=== PATIENT | female | born 2000 | race Hispanic/Latino ===

== ENCOUNTER 2024-09-21 06:10 | Inpatient (IN) | payer SELFPAY ==
[~2024-09-21] VITALS: Ht 170.2 cm; Wt 86.2 kg
--- NOTE | 2024-09-21 06:29 | ERN ---
General Chief Complaint: Abdominal Pain Stated Complaint: EPIGASTRIC PAIN Time Seen by MD: 06:26 Source: patient History of Present Illness Initial Comments Patient has subxiphoid abdominal pain. She is sitting on the bed rocking back and forth to try and decrease the pain. She states she has had this pain before and she usually just toughs it out but this time it is more intense. The pain does not radiate to the right or the left it stays midline subxiphoid or supraumbilical. She is otherwise healthy no meds no allergies. Timing/Duration: 1-3 hours Severity: moderate Associated Symptoms: denies symptoms Allergies: Coded Allergies: No Known Allergies (Unverified Allergy, Unknown, 09/21/24) Past Medical History Past Medical History: No Pertinent History Past Surgical History: Constitutional: (+) chills; (-) diaphoresis, (-) fever, (-) malaise, (-) weakness, (-) other documentation EENTM: (-) eye pain, (-) blurred vision, (-) tearing, (-) double vision, (-) ear pain, (-) ear discharge, (-) nose pain, (-) nose congestion, (-) throat pain, (-) Throat swelling, (-) mouth pain, (-) tooth pain, (-) mouth swelling, (-) other documentation Respiratory: (-) cough, (-) orthopnea, (-) short of breath, (-) stridor, (-) wheezing, (-) other documentation Cardiovascular: (-) chest pain, (-) edema, (-) palpitations, (-) syncope, (-) dyspnea on exertion, (-) other documentation Gastrointestinal/Abdominal: (+) nausea Genitourinary: (-) vaginal discharge, (-) vaginal bleeding, (-) dysuria, (-) frequency, (-) hematuria, (-) pain, (-) other documentation Musculoskeletal: (-) Neck pain, (-) back pain, (-) Flank Pain, (-) joint pain, (-) joint swelling, (-) muscle pain, (-) muscle stiffness, (-) gout, (-) other documentation Skin: (-) laceration, (-) contusion, (-) abrasion, (-) abscess, (-) rash, (-) change in color, (-) change in hair, (-) change in nails, (-) diaphoresis, (-) dryness, (-) other documentation Neuro: (-) altered mental status, (-) headache, (-) syncope, (-) paralysis, (-) numbness, (-) seizure, (-) pre-existing deficit, (-) tremors, (-) weakness, (-) dizziness, (-) slurred speech, (-) vertigo, (-) other documentation Physical Exam General Appearance: (+) moderate distress Orientation: (+) oriented x 3 Head/Face Trauma: No Eye: bilateral eye normal inspection, bilateral eye PERRL, bilateral eye EOMI Ear, Nose, Throat: (+) hearing grossly normal, (+) moist mucous membraine Neck: (+) normal inspection, (+) supple, (+) full range of motion Respiratory: (+) chest non-tender, (+) lungs clear, (+) well ventilated Heart: (+) regular, (+) tachycardia Vascular: (+) no edema Gastrointestinal: (+) soft, (+) tender, (+) bowel sound absent Gastrointestinal Comment The only tenderness is subxiphoid supraumbilical pain. He is almost pinpoint pain. Results Laboratory and Microbiology Lab and Micro Result Laboratory Tests Test 09/21/24 07:01 White Blood Count 11.8 K/uL (4.8-10.8) H Red Blood Count 4.68 MIL/uL (4.00-5.50) Hemoglobin 14.1 g/dL (12.0-16.0) Hematocrit 42.7 % (36-48) Mean Corpuscular Volume 91.2 fL (79-99) Mean Corpuscular Hemoglobin 30.1 pg (27.0-33.0) Mean Corpuscular Hemoglobin Concent 33.0 g/dL (32.0-36.0) Red Cell Distribution Width 12.5 % (11.0-15.5) Platelet Count 225 K/uL (130-400) Mean Platelet Volume 10.0 fL (7.5-10.5) Immature Granulocyte % (Auto) 0.2 % (0-1) Neutrophils (%) (Auto) 77.6 % (40.0-77.0) H Lymphocytes (%) (Auto) 16.6 % (21.0-51.0) L Monocytes (%) (Auto) 5.1 % (3.0-13.0) Eosinophils (%) (Auto) 0.3 % (0.0-8.0) Basophils (%) (Auto) 0.2 % (0.0-5.0) Neutrophils # (Auto) 9.1 K/uL (1.8-7.7) H Lymphocytes # (Auto) 2.0 K/uL (1.0-4.8) Monocytes # (Auto) 0.6 K/uL (0.1-1.0) Eosinophils # (Auto) 0.04 K/uL (0.00-0.70) Basophils # (Auto) 0.02 K/uL (0.00-0.20) Absolute Immature Granulocyte (auto 0.02 K/uL (0-1) Nucleated Red Blood Cells 0.0 % (0.0-0.19) Urine Color YELLOW (YELLOW) Urine Appearance CLOUDY (CLEAR) H Urine pH 6.0 (5.0-8.0) Urine Specific Fernley 1.033 (1.001-1.031) Urine Protein 20 mg/dL (NEGATIVE) H Urine Glucose (UA) NEGATIVE mg/dL (NEGATIVE) Urine Ketones NEGATIVE mg/dL (NEGATIVE) Urine Occult Blood SMALL (NEGATIVE) H Urine Nitrate 2+ (NEGATIVE) H Urine Bilirubin NEGATIVE mg/dL (NEGATIVE) Urine Urobilinogen 0.2 mg/dL (0.2-1.0) Urine Leukocyte Esterase 500 Jesi/uL (NEGATIVE) H Urine RBC 2-5 /HPF (0-1) H Urine WBC 2-5 /HPF (0-1) H Urine Non-Squamous Epithelial Cells 6-10 /HPF (0-2) Urine Calcium Oxalate Crystals Few /LPF (None Seen) H Urine Bacteria Moderate /HPF (None Seen) H Urine HCG, Qualitative NEGATIVE (NEGATIVE) Sodium Level 142 mmol/L (136-145) Potassium Level 3.6 mmol/L (3.5-5.1) Chloride Level 106 mmol/L (101-111) Carbon Dioxide Level 27 mmol/L (21-32) Blood Urea Nitrogen 14 mg/dL (7-18) Creatinine 0.9 mg/dL (0.5-1.0) Glomerular Filtration Rate Calc 91 mL/min (>90) Random Glucose 111 mg/dL (70-105) H Total Calcium 9.2 mg/dL (8.5-10.1) Total Bilirubin 1.1 mg/dL (0.2-1.0) H Direct Bilirubin 0.4 mg/dL (0.0-0.3) H Aspartate Amino Transf (AST/SGOT) 139 U/L (10-37) H Alanine Aminotransferase (ALT/SGPT) 99 U/L (12-78) H Alkaline Phosphatase 96 U/L (50-136) Total Protein 7.3 g/dL (6.0-8.3) Albumin 4.0 g/dL (3.5-5.0) MDM Supraumbilical abdominal pain. Cause unknown. Patient has had it in the past and it has resolved. ED Course Orders Procedure Category Date Status Time Cbc With Differential LAB 09/21/24 Complete 06:30 ,Urine Test LAB 09/21/24 Complete 06:30 Urinalysis Profile LAB 09/21/24 Complete 06:30 Ondansetron 4mg Inj PHA 09/21/24 Complete (Zofran 4mg Inj) 06:30 Lidocaine Hcl 2% PHA 09/21/24 Complete Viscous (Lidocaine Hcl 06:30 Mag/Alum/Simeth 30ml PHA 09/21/24 Complete (Maalox Plus 30ml) 06:30 Dicyclomine Hcl PHA 09/21/24 Complete (Bentyl 10mg/5ml 06:30 Basic Metabolic Panel LAB 09/21/24 Complete 06:30 Us Abdominal Ruq\Ltd US 09/21/24 Resulted 07:34 Hepatic Function Panel LAB 09/21/24 Complete 07:34 Morphine 4mg Syg PHA 09/21/24 Complete (Morphine 4mg Syg) 08:30 Culture Urine ROGER 09/21/24 In Process 09:17 Hydromorphone 1 Mg PHA 09/21/24 Complete Inj (Dilaudid 1mg Inj 11:00 Current Medications Medications (Trade) Dose Ordered Sig/Nat Route PRN Reason Start Time Stop Time Status Last Admin Dose Admin Al Hydroxide/Mg Hydroxide (MAALox PLUS 30ML) 30 ml ONCE ONCE PO 09/21/24 06:30 09/21/24 06:33 DC 09/21/24 06:57 Dicyclomine HCl (Bentyl 10mg/5ml Syrup) 10 mg ONCE ONCE PO 09/21/24 06:30 09/21/24 06:33 DC 09/21/24 06:57 Hydromorphone HCl (DiLAUDid 1MG INJ) 0.5 mg ONCE ONCE IVP 09/21/24 11:00 09/21/24 11:01 DC 09/21/24 11:18 Lidocaine HCl (Lidocaine HCl 2% Viscous) 10 ml ONCE ONCE PO 09/21/24 06:30 09/21/24 06:33 DC 09/21/24 06:58 Morphine Sulfate (morPHINE 4MG SYG) 4 mg ONCE ONCE IVP 09/21/24 08:30 09/21/24 08:31 DC 09/21/24 08:27 Ondansetron HCl (zoFRAN 4MG INJ) 4 mg ONCE ONCE IVP 09/21/24 06:30 09/21/24 06:33 DC 09/21/24 06:58 Vital Signs Date Time Temp Pulse Resp B/P (MAP) Pulse Ox O2 Delivery O2 Flow Rate FiO2 09/21/24 11:26 97.9 72 16 134/77 98 Room Air* 0 09/21/24 10:00 97.9 77 24 131/76 97 Room Air* 0 09/21/24 09:00 97.9 78 20 121/79 98 Room Air* 0 09/21/24 07:52 97.5 96 20 121/81 100 Room Air* 0 09/21/24 06:42 96.8 95 20 128/77 99 Room Air* 0 09/21/24 06:12 96.8 95 20 128/77 99 Room Air DX & DISP Disposition: Inpatient Departure Impression: Primary Impression: Biliary colic Additional Impression: Intractable abdominal pain Condition: Stable Referrals: LILLIAM OLIVAS MD (PCP) FLEX HENRY MD Sep 21, 2024 06:29 AMIRA BACON MD Sep 21, 2024 12:40
[2024-09-21] MEDS: DICYCLOMINE HCL 10 MG/5 ML ML PO ONE (06:57)
[2024-09-21] MEDS: MAG/ALUM/SIMETH 30 ML UDCUP PO ONE (06:57)
[2024-09-21] MEDS: ondanSETRON 4MG INJ IVP ONE (06:58)
[2024-09-21] MEDS: LIDOCAINE HCL 2% VISCOUS 15 ML UDCUP PO ONE (06:58)
[2024-09-21 07:24] LABS: BASOPHILS # (AUTO) 0.02 K/uL (0.00-0.20); BASOPHILS % (AUTO) 0.2 % (0.0-5.0); EOSINOPHILS # (AUTO) 0.04 K/uL (0.00-0.70); EOSINOPHILS % (AUTO) 0.3 % (0.0-8.0); HEMATOCRIT 42.7 % (36-48); IMMATURE GRANULOCYTE ABSOLUTE 0.02 K/uL (0-1); LYMPHOCYTES % (AUTO) 16.6 % (21.0-51.0); MEAN CORPUSCULAR HEMOGLOBIN 30.1 pg (27.0-33.0); MEAN CORPUSCULAR VOLUME 91.2 fL (79-99); MONOCYTES # (AUTO) 0.6 K/uL (0.1-1.0); MONOCYTES % (AUTO) 5.1 % (3.0-13.0); NEUTROPHILS # (AUTO) 9.1 K/uL (1.8-7.7); NEUTROPHILS % (AUTO) 77.6 % (40.0-77.0); PLATELET COUNT (AUTO) 225 K/uL (130-400); RED BLOOD CELL COUNT(AUTO) 4.68 MIL/uL (4.00-5.50); RED CELL DISTRIBUTION WIDTH 12.5 % (11.0-15.5); WHITE BLOOD COUNT (AUTO) 11.8 K/uL (4.8-10.8)
[2024-09-21 07:36] LABS: CREATININE 0.9 mg/dL (0.5-1.0); POTASSIUM 3.6 mmol/L (3.5-5.1)
[2024-09-21 07:40] LABS: APPEARANCE,URINE CLOUDY (CLEAR); BILIRUBIN,URINE NEGATIVE (NEGATIVE); COLOR,URINE YELLOW (YELLOW); GLUCOSE, URINE (UA) NEGATIVE (NEGATIVE); KETONES,URINE NEGATIVE (NEGATIVE); LEUKOCYTE ESTERASE ,URINE 500 Leu/uL (NEGATIVE); NITRATE,URINE 2+ (NEGATIVE); OCCULT BLOOD,URINE SMALL (NEGATIVE); PROTEIN,URINE 20 mg/dL (NEGATIVE); UROBILINOGEN,URINE 0.2 mg/dL (0.2-1.0)
--- NOTE | 2024-09-21 07:59 | HMCIMG ---
US ABDOMINAL RUQ\E\LTD HISTORY: Pain COMPARISON: None TECHNIQUE: Right upper quadrant abdominal ultrasound study was performed. FINDINGS: Liver measures 17 cm. The visualized portion of the pancreas is within normal limits. Liver is echogenic consistent with liver parenchymal disease. Gallstones are seen in the distended gallbladder. Portal vein is patent. Common duct measures 4 mm. No evidence of gallbladder wall thickening is seen. Right kidney measures 10.6 x 5 x 4.1 cm. No hydronephrosis is seen of the right kidney. IMPRESSION: 1. Gallstones in the distended gallbladder. No ductal dilatation is seen. 2. No hydronephrosis is seen.
[2024-09-21] MEDS: morPHINE 4 MG SYG IVP ONE (08:27)
[2024-09-21 09:17] LABS: ADD UA MICROSCOPIC YES; HCG,QUALITATIVE URINE NEGATIVE (NEGATIVE)
[2024-09-21 09:50] LABS: BACTERIA,URINE Moderate /HPF (None Seen); CALCIUM OXALATE CRYSTALS,UR Few /LPF (None Seen)
[2024-09-21 09:57] LABS: BILIRUBIN,DIRECT 0.4 mg/dL (0.0-0.3); BILIRUBIN,TOTAL 1.1 mg/dL (0.2-1.0); TOTAL PROTEIN, SERUM 7.3 g/dL (6.0-8.3)
[2024-09-21] MEDS: hydroMORPHone 1 MG INJ IVP ONE (11:18)
[2024-09-21] MEDS ORDERED: acetaMINOPHEN 650 MG/20.3 ML UDCUP PEG PRN (13:00)
[2024-09-21] MEDS ORDERED: morPHINE 2 MG SYG IVP PRN (13:00)
[2024-09-21] MEDS: DEXTROSE 5 % AND 0.9 % NACL 1,000 ML IV SCH (13:00)
--- NOTE | 2024-09-21 13:02 | CONS ---
GENERAL SURGERY CONSULTATION NOTE Date/Time Patient Seen: [ September 21, 2024] Requesting Physician: [Dr. Kevin Vogel ] Reason for Consultation: [ Cholecystitis with a gallstones] History of Present Illness: [Patient with undulating pain since her 1st a number of years ago. Recently has recent as for him this morning patient is starting having more constant pain. Pain localized in the epigastrium and right upper quadrant. Associated with the pain with some nausea. Patient denies any emesis. Pain got significant outpatient came in the emergency room. An ultrasound was done that shows a distended gallbladder with multiple stones and sludge within it. I personally reviewed the ultrasound in the above impression was my impression. Patient denies any medical problems. Admits to two C-sections. Prior to onset of symptoms patient was tolerating a regular diet, having regular bowel fun ction. Patient denies any melena, hematochezia, hematuria. ] Past Medical History: [ Patient denies] Past Surgical History: [C-sections x2 ] Family History: [ Noncontributory] Social History: [ Patient denies any illicit drug use] Habits: [Never] smoker. [Denies] alcohol consumption. [Denies] illicit drug use Current Medications Medications (Trade) Dose Ordered Sig/Nat Route Start Time Stop Time Status Last Admin Dose Admin Dextrose/Sodium Chloride 1,000 ml @ 75 mls/hr [id number] IV 09/21/24 13:00 10/21/24 12:59 Review of Systems: CONST: [No fever, fatigue, or weight changes.] EYES: [No recent vision problems.] ENT: [No congestion, ear pain, or sore throat.] C/V: [No chest pain, palpitations, or edema.] RESP: [No cough, congestion, wheezing or shortness of breath.] GI: [Undulating abdominal pain : [No incontinence or dysuria.] SKIN: [No rash.] NEURO: [No headache, focal numbness or weakness, dizziness, or seizures.] PSYCH: [No depression or anxiety.] HEME: [No abnormal bruising or bleeding.] LYMPH: [No swollen glands.] Physical Examination: PHYSICAL EXAM EYES: Sclera white HENT: Oral nasal mucosa pink and moist NECK: Supple, . LUNGS: Unlabored CARDIOVASCULAR: Regular rate and rhythm ABDOMEN: Tender to palpation in epigastrium right upper quadrant. Positive Anthony's sign. CENTRAL NERVOUS SYSTEM: Awake, alert, oriented x3 SKIN: No rashes, no swelling. LYMPHATICS: No peripheral lymphadenopathy MUSCULOSKELETAL: Motor and sensory function grossly intact EXTREMITIES: No cyanosis or clubbing BACK: No deformity, no pressure ulcer. GENITOURINARY: No dysuria or hematuria Vital Signs (last 8hr) Date Time Temp Pulse Resp B/P (MAP) Pulse Ox O2 Delivery O2 Flow Rate FiO2 09/21/24 11:26 97.9 72 16 134/77 98 Room Air* 0 21 09/21/24 10:00 97.9 77 24 131/76 97 Room Air* 0 09/21/24 09:00 97.9 78 20 121/79 98 Room Air* 0 09/21/24 07:52 97.5 96 20 121/81 100 Room Air* 0 09/21/24 06:42 96.8 95 20 128/77 99 Room Air* 0 09/21/24 06:12 96.8 95 20 128/77 99 Room Air Laboratory: [ ] Hematology Labs: Test 09/21/24 07:01 Range/Units White Blood Count 11.8 H 4.8-10.8 K/uL Red Blood Count 4.68 4.00-5.50 MIL/uL Hemoglobin 14.1 12.0-16.0 g/dL Hematocrit 42.7 36-48 % Mean Corpuscular Volume 91.2 79-99 fL Mean Corpuscular Hemoglobin 30.1 27.0-33.0 pg Mean Corpuscular Hemoglobin Concent 33.0 32.0-36.0 g/dL Red Cell Distribution Width 12.5 11.0-15.5 % Platelet Count 225 130-400 K/uL Mean Platelet Volume 10.0 7.5-10.5 fL Immature Granulocyte % (Auto) 0.2 0-1 % Neutrophils (%) (Auto) 77.6 H 40.0-77.0 % Lymphocytes (%) (Auto) 16.6 L 21.0-51.0 % Monocytes (%) (Auto) 5.1 3.0-13.0 % Eosinophils (%) (Auto) 0.3 0.0-8.0 % Basophils (%) (Auto) 0.2 0.0-5.0 % Neutrophils # (Auto) 9.1 H 1.8-7.7 K/uL Lymphocytes # (Auto) 2.0 1.0-4.8 K/uL Monocytes # (Auto) 0.6 0.1-1.0 K/uL Eosinophils # (Auto) 0.04 0.00-0.70 K/uL Basophils # (Auto) 0.02 0.00-0.20 K/uL Absolute Immature Granulocyte (auto 0.02 0-1 K/uL Nucleated Red Blood Cells 0.0 0.0-0.19 % Chemistry Labs: Test 09/21/24 07:01 Range/Units Sodium Level 142 136-145 mmol/L Potassium Level 3.6 3.5-5.1 mmol/L Chloride Level 106 101-111 mmol/L Carbon Dioxide Level 27 21-32 mmol/L Blood Urea Nitrogen 14 7-18 mg/dL Creatinine 0.9 0.5-1.0 mg/dL Glomerular Filtration Rate Calc 91 >90 mL/min Random Glucose 111 H 70-105 mg/dL Total Calcium 9.2 8.5-10.1 mg/dL Total Bilirubin 1.1 H 0.2-1.0 mg/dL Direct Bilirubin 0.4 H 0.0-0.3 mg/dL Aspartate Amino Transf (AST/SGOT) 139 H 10-37 U/L Alanine Aminotransferase (ALT/SGPT) 99 H 12-78 U/L Alkaline Phosphatase 96 50-136 U/L Total Protein 7.3 6.0-8.3 g/dL Albumin 4.0 3.5-5.0 g/dL Diagnostics / Radiology: [Copy/Paste Echos/Imaging Report here] Assessment: [ Cholecystitis with gallstones] Plan: [ Plan laparoscopic cholecystectomy with intraoperative cholangiogram. Risks associated with the procedure not limited to infection, bleeding, injury to surrounding structures has been explained to patient and the family members and they indicate they understand and would like to proceed.] MELINA CASH MD Sep 21, 2024 13:02
--- NOTE | 2024-09-21 13:14 | NUR ---
SURGICAL CONSULT: I SPOKE TO DR CASH ABOUT CONSULT AND HE STOPPED BY TO SEE/ASSESS THE PT. HE STATED HE WOULD PLACE ORDERS FOR PT TO GO TO SURGERY TOMORROW. I DID INFORM DOUBLE CUT SAWYER. HE STATED HE DID NOT NEED THE MRCP.
--- NOTE | 2024-09-21 13:15 | NUR ---
MEDICATION RECONCILIATION: PT TAKES NO HOME MEDS
[2024-09-21] MEDS: ketOROlac 30MG VIAL (30MG/ML) IM PRN (14:02)
[2024-09-21] MEDS: LACTATED RINGERS 1000ML 1,000 ML IV SCH (14:10)
--- NOTE | 2024-09-21 15:17 | NUR ---
ATTEMPTED TO CALL REPORT-NO ANSWER
--- NOTE | 2024-09-21 15:25 | NUR ---
TOOK REPORT FROM RICARDO IN THE ER. PATIENT IS BEING ADMITTED TO THE MED SURG FLOOR. VITALS IN RANGE. PATIENT WILL BE HAVING SURGERY IN THE MORNING.
[2024-09-21 15:40] VITALS: BP 131/79; PULSE 83; RESP 18; TEMP 98.2; O2SAT 97
--- NOTE | 2024-09-21 15:40 | NUR ---
PATIENT ARRIVED TO THE UNIT. NO SIGNS AND SYMPTOMS OF DISTRESS NOTED. WILL HAVE PATIENT SIGN CONSENT FORM AND PREP FOR SURGERY TOMORROW.
[2024-09-21] MEDS: ondanSETRON 4MG INJ IVP PRN (19:32)
[2024-09-21] MEDS: morPHINE 2 MG SYG IVP PRN (19:33)
[2024-09-21 21:44] VITALS: BP 138/66; PULSE 78; RESP 19; TEMP 98.2
[2024-09-21 23:44] VITALS: O2SAT 100
[2024-09-22] VITALS (27 sets, daily range): BP systolic 101–133; BP diastolic 48–78; PULSE 62–107; RESP 14–19; TEMP 97.6–99.2; O2SAT 95–97
--- NOTE | 2024-09-22 01:30 | NUR ---
Assumed care at this time. Handoff report given by nurse Jonah Zuñiga
[2024-09-22 05:49] LABS: BASOPHILS # (AUTO) 0.02 K/uL (0.00-0.20); BASOPHILS % (AUTO) 0.2 % (0.0-5.0); EOSINOPHILS # (AUTO) 0.08 K/uL (0.00-0.70); EOSINOPHILS % (AUTO) 0.8 % (0.0-8.0); IMMATURE GRANULOCYTE ABSOLUTE 0.04 K/uL (0-1); LYMPHOCYTES # (AUTO) 1.5 K/uL (1.0-4.8); LYMPHOCYTES % (AUTO) 14.9 % (21.0-51.0); MEAN CORPUSCULAR HEMOGLOBIN 30.5 pg (27.0-33.0); MEAN CORPUSCULAR HGB CONC 33.6 g/dL (32.0-36.0); MEAN CORPUSCULAR VOLUME 90.7 fL (79-99); MONOCYTES # (AUTO) 0.8 K/uL (0.1-1.0); NEUTROPHILS # (AUTO) 7.7 K/uL (1.8-7.7); NEUTROPHILS % (AUTO) 75.7 % (40.0-77.0); PLATELET COUNT (AUTO) 193 K/uL (130-400); RED CELL DISTRIBUTION WIDTH 12.6 % (11.0-15.5); WHITE BLOOD COUNT (AUTO) 10.2 K/uL (4.8-10.8)
[2024-09-22 06:18] LABS: CREATININE 0.7 mg/dL (0.5-1.0); MAGNESIUM 1.8 mg/dL (1.80-2.40); POTASSIUM 3.4 mmol/L (3.5-5.1)
[2024-09-22] MEDS ORDERED: proPOFol 10 MG/ML 20ML VIAL IV ONE (07:56)
[2024-09-22] MEDS ORDERED: LIDOCAINE PF 100MG/5ML (2%) SYRINGE 5ML ONE (07:56)
[2024-09-22] MEDS ORDERED: rocuRONium bROMide 10MG/1ML 5ML VL ONE ×2 (07:56→09:00)
[2024-09-22] MEDS ORDERED: MIDAZOLAM HCL 1 MG/ML 2ML VIAL ONE (08:03)
[2024-09-22] MEDS ORDERED: FENTanyl CITRate PF 50 MCG/1 ML 2ML VIAL ONE ×2 (08:04→09:00)
[2024-09-22] MEDS ORDERED: dexaMETHasone SOD PHOSPHATE 10MG/ML 1ML VIAL ONE (08:24)
[2024-09-22] MEDS ORDERED: ondanSETRON 4MG INJ ONE ×2 (08:24→08:25)
[2024-09-22] MEDS: BUPIvacaine/PF 0.5% 30ML VIAL INJ ONE (08:25)
[2024-09-22] MEDS ORDERED: BUPIvacaine/PF 0.5% 30ML VIAL ONE (08:26)
[2024-09-22] MEDS ORDERED: ceFAZolin SODIUM 1 GM VIAL ONE (08:27)
[2024-09-22] MEDS: ceFAZolin SODIUM 2 GM VIAL IVPB ONE (08:29)
[2024-09-22] MEDS ORDERED: SUGAMMADEX SODIUM 200 MG/2 ML VIAL IV ONE (09:05)
[2024-09-22] MEDS ORDERED: IOHEXOL-350 50ML VIAL IV ONE (09:22)
--- NOTE | 2024-09-22 09:42 | OP ---
Operative Note: DATE OF PROCEDURE: 09/22/24 SURGEON: MELINA CASH MD BRADLEY LINEBACKER CREWMEMBER: [None] ANESTHESIA: [General endotracheal anesthesia] ANESTHESIOLOGIST/DATA SOLUTIONS ARCHITECT: [[facility] anesthesia team] PREOPERATIVE DIAGNOSIS: [Gallstones with cholecystitis] POSTOPERATIVE DIAGNOSIS: [Same] SYNOPSIS: [Gallstones with cholecystitis Laparoscopic cholecystectomy with intraoperative cholangiogram #1 critical view obtained, #2 intraoperative cholangiogram with good flow of c ontrast from cystic duct into common bile duct, right and left hepatic duct, and duodenum noted All sponges and instruments were accounted for at the end the case Patient tolerated the procedure well, there no complications] PROCEDURE: [Laparoscopic cholecystectomy with intraoperative cholangiogram] ESTIMATED BLOOD LOSS: [Less than 10 cc] INDICATIONS: [Gallstones with cholecystitis] DESCRIPTION OF PROCEDURE: [On day of surgery patient was brought to the operating room. Positioned in the supine position. Preoperative antibiotics were given. Bilateral SCDs were placed. The patient was intubated. Patient then was prepped and draped in the usual fashion. Then a skin incision was made in the right upper quadrant. 5 mm trochars inserted under direct vision. Abdomen was insufflated to 15 mmHg. No injury to omentum or bowel is noted. A 5 mm port was placed in the umbilicus. A 12 mm port was placed in the subxiphoid position. A 5 mm port was placed in the right lateral abdomen. The gallbladder was grasped, elevated, the cystic duct and cystic artery was sequentially dissected. Critical view was obtained. An intraoperative cholangiogram was conducted by placing a clip at the distal end of the cystic duct. Ductotomy was made. A cholangiocatheter was introduced. Good flow of contrast from the cystic duct into common bile duct, right and left hepatic duct, and duodenum was noted. The Cholangiocath was removed. The cystic duct was sequentially clipped and transected. The cystic artery was then seq uentially clipped and transected. The gallbladder then was dissected off the gallbladder fossa and removed an Endo Catch bag. Abdomen was irrigated. Appropriate hemostasis was noted. Then all insufflation gas was removed. Ports were removed. Local anesthetic was instilled into the incisions, and the incisions were closed with a subcuticular fashion. All sponges and instruments were accounted for at the end of the case. Patient tolerated the procedure well, there were no complications.] MELINA CASH MD Sep 22, 2024 09:42
[2024-09-22] MEDS ORDERED: TRAM100T34 PO (09:44)
[2024-09-22] MEDS ORDERED: METH-662 PO (09:44)
[2024-09-22] MEDS ORDERED: GABA-529 PO (09:44)
[2024-09-22] MEDS ORDERED: DOCU-116 PO (09:44)
--- NOTE | 2024-09-22 09:57 | HMCIMG ---
CHOLANGIO &/OR PANCRE INTRAOPE, C ARM USAGE HISTORY: CHOLANGIOGRAM W/ IOC'S TECHNIQUE: CHOLANGIO &/OR PANCRE INTRAOPE, C ARM USAGE FINDINGS/IMPRESSION: Fluoroscopic images were obtained for procedure documentation. Please see operative report for more details. Fluoroscopy time 14 seconds. Patent CBD.
[2024-09-22] MEDS: GABApentin 100 MG CAPSULE PO SCH (13:50)
--- NOTE | 2024-09-22 14:19 | NUR ---
Discharge Planning: Pt. lives with her mother Remedios Zamora. Contact number is . PCP is Dr. Irwin Alcantar and preferred [facility]. Pt. states she is independent with all ADL's. No home health, provider services, or DME. DCP is for home. No d/c needs at this time. Addendum: 09/22/24 at 1422 by CARLEY PHIPPS RN CM Amended: Links added.
[2024-09-22] MEDS ORDERED: PoTASSium chloRIDE 20MEQ/100ML 100 ML IV PRN (16:00)
[2024-09-22] MEDS ORDERED: PoTASSium chloRIDE 20MEQ ER 20 MEQ ERTAB PO PRN (16:00)
--- NOTE | 2024-09-22 16:01 | HP ---
INFECTIOUS DISEASE HISTORY & PHYSICAL NOTE Date of Service: Sep 22, 2024 HISTORY OF PRESENT ILLNESS: This is a 24-year-old female patient with past medical history of left ankle surgery and C-sections x 2 who presented to the emergency room with chief complaint of intractable abdominal pain. An abdominal ultrasound was done on admission which showed gallstones with a distended gallbladder. The WBC was slightly elevated at 11.8 but afebrile with a temperature of 97.5. A Urinalysis was positive. General surgeon was consulted and patient underwent a l aparoscopic cholecystectomy today. On examination today in room 318 patient is status post laparoscopic cholecystectomy. Patient denying pain at the moment. No nausea or vomiting. Patient will be started on ceftriaxone IV for UTI. Will continue to follow patient's care. REVIEW OF SYSTEMS CONSTITUTIONAL: Denies fever, chills, or fatigue. HEAD/FACE: No signs of trauma. EENT: Denies eye pain, blurred vision, double vision, or light sensitivity. RESPIRATORY: Denies shortness of breath, cough, wheezing. CARDIOVASCULAR: Denies chest pain, palpitation, syncope GASTROINTESTINAL/ABDOMINAL: Denies abdominal pain, constipation, diarrhea, nausea or vomiting. Abdominal pain POA GENITOURINARY: Denies dysuria or hematuria. MUSCULOSKELETAL: Denies joint pain, tenderness, or trauma. INTEGUMENTARY: Denies rash or itchiness NEUROLOGICAL/PSYCH: Denies anxiety, depression, heat or cold intolerance. PAST MEDICAL HISTORY: Left ankle fracture. PAST SURGICAL HISTORY: x2. Left ankle surgery. PAST SOCIAL HISTORY: Denies the use of alcohol, tobacco or any other illicit drug. FAMILY HISTORY: Sister has been diabetes mellitus. Coded Allergies: No Known Allergies (Unverified Allergy, Unknown, 09/21/24) PHYSICAL EXAM EYES: Anicteric. Pupils equal and reactive. HENT: No oral thrush seen, moist Oral mucosa. NECK: Supple, no JVD or thyromegaly. LUNGS: Good air entry. No rales, no rhonchi. CARDIOVASCULAR: S1, S2 regular. No murmur heard. ABDOMEN: Soft, non tender, bowel sounds present, no organomegaly. Abdominal surgical incisions. CENTRAL NERVOUS SYSTEM: Awake, alert, oriented x 3. SKIN: No rashes, no swelling. LYMPHATICS: No peripheral lymphadenopathy. MUSCULOSKELETAL: No joint swelling, erythema or tenderness. EXTREMITIES: No cyanosis or clubbing. BACK: No deformity, no pressure ulcer. GENITOURINARY: No dysuria or hematuria. Vital Sign (Last 12 Hours) 09/22/24 09/22/24 09/22/24 09/22/24 05:04 07:46 08:00 09:35 Temp 99.1 98.2 97.5 Pulse 62 93 97 Resp 18 19 19 B/P (MAP) 101/48 116/74 131/62 Pulse Ox 98 98 95 100 O2 Delivery Room Air Room Air Room Air* Nonrebreathing Mask O2 Flow Rate 0 FiO2 21 21 100 09/22/24 09/22/24 09/22/24 09/22/24 09:40 09:45 09:50 09:55 Pulse 98 89 83 79 Resp 14 16 16 14 B/P (MAP) 132/78 120/65 117/63 126/66 Pulse Ox 100 100 98 99 O2 Delivery Nonrebreathing Mask Nonrebreathing Mask Room Air Room Air FiO2 100 100 09/22/24 09/22/24 09/22/24 09/22/24 10:00 10:05 10:10 10:15 Pulse 87 77 79 76 Resp 16 17 17 15 B/P (MAP) 124/69 122/64 120/67 121/67 Pulse Ox 98 98 99 98 O2 Delivery Room Air Room Air Room Air Room Air 09/22/24 09/22/24 09/22/24 09/22/24 10:17 10:20 10:30 10:45 Temp 97.7 97.9 Pulse 77 74 82 72 Resp 18 19 17 18 B/P (MAP) 118/69 117/65 115/75 114/74 Pulse Ox 97 98 97 98 O2 Delivery Room Air Room Air Room Air Room Air FiO2 21 21 21 09/22/24 09/22/24 09/22/24 09/22/24 11:00 11:15 11:45 12:15 Pulse 73 73 75 77 Resp 18 17 18 17 B/P (MAP) 116/71 113/74 119/71 107/55 Pulse Ox 96 96 96 96 O2 Delivery Room Air Room Air Room Air Room Air FiO2 21 21 21 21 09/22/24 09/22/24 13:15 14:15 Pulse 77 84 Resp 17 18 B/P (MAP) 102/53 111/71 Pulse Ox 95 97 O2 Delivery Room Air Room Air FiO2 21 21 LABS: Laboratory: Test 09/22/24 05:28 09/21/24 07:01 Range/Units White Blood Count 10.2 4.8-10.8 K/uL Red Blood Count 4.30 4.00-5.50 MIL/uL Hemoglobin 13.1 12.0-16.0 g/dL Hematocrit 39.0 36-48 % Mean Corpuscular Volume 90.7 79-99 fL Mean Corpuscular Hemoglobin 30.5 27.0-33.0 pg Mean Corpuscular Hemoglobin Concent 33.6 32.0-36.0 g/dL Red Cell Distribution Width 12.6 11.0-15.5 % Platelet Count 193 130-400 K/uL Mean Platelet Volume 10.4 7.5-10.5 fL Immature Granulocyte % (Auto) 0.4 0-1 % Neutrophils (%) (Auto) 75.7 40.0-77.0 % Lymphocytes (%) (Auto) 14.9 L 21.0-51.0 % Monocytes (%) (Auto) 8.0 3.0-13.0 % Eosinophils (%) (Auto) 0.8 0.0-8.0 % Basophils (%) (Auto) 0.2 0.0-5.0 % Neutrophils # (Auto) 7.7 1.8-7.7 K/uL Lymphocytes # (Auto) 1.5 1.0-4.8 K/uL Monocytes # (Auto) 0.8 0.1-1.0 K/uL Eosinophils # (Auto) 0.08 0.00-0.70 K/uL Basophils # (Auto) 0.02 0.00-0.20 K/uL Absolute Immature Granulocyte (auto 0.04 0-1 K/uL Nucleated Red Blood Cells 0.0 0.0-0.19 % Sodium Level 140 136-145 mmol/L Potassium Level 3.4 L 3.5-5.1 mmol/L Chloride Level 105 101-111 mmol/L Carbon Dioxide Level 28 21-32 mmol/L Blood Urea Nitrogen 9 7-18 mg/dL Creatinine 0.7 0.5-1.0 mg/dL Glomerular Filtration Rate Calc 123 >90 mL/min Random Glucose 98 70-105 mg/dL Total Calcium 8.6 8.5-10.1 mg/dL Magnesium Level 1.80 1.80-2.40 mg/dL Urine Color YELLOW YELLOW Urine Appearance CLOUDY H CLEAR Urine pH 6.0 5.0-8.0 Urine Specific Garretson 1.033 H 1.001-1.031 Urine Protein 20 H NEGATIVE mg/dL Urine Glucose (UA) NEGATIVE NEGATIVE mg/dL Urine Ketones NEGATIVE NEGATIVE mg/dL Urine Occult Blood SMALL H NEGATIVE Urine Nitrate 2+ H NEGATIVE Urine Bilirubin NEGATIVE NEGATIVE mg/dL Urine Urobilinogen 0.2 0.2-1.0 mg/dL Urine Leukocyte Esterase 500 H NEGATIVE Jesi/uL Urine RBC 2-5 H 0-1 /HPF Urine WBC 2-5 H 0-1 /HPF Urine Non-Squamous Epithelial Cells 6-10 0-2 /HPF Urine Calcium Oxalate Crystals Few H None Seen /LPF Urine Bacteria Moderate H None Seen /HPF Urine HCG, Qualitative NEGATIVE NEGATIVE Total Bilirubin 1.1 H 0.2-1.0 mg/dL Direct Bilirubin 0.4 H 0.0-0.3 mg/dL Aspartate Amino Transf (AST/SGOT) 139 H 10-37 U/L Alanine Aminotransferase (ALT/SGPT) 99 H 12-78 U/L Alkaline Phosphatase 96 50-136 U/L Total Protein 7.3 6.0-8.3 g/dL Albumin 4.0 3.5-5.0 g/dL Current Medications Medications (Trade) Dose Ordered Sig/Nat Route PRN Reason Start Time Stop Time Status Last Admin Dose Admin Acetaminophen (TYLenol 650MG ELIXIR) 650 mg Q6H6 PRN PEG TEMPERATURE GREATER THAN 101.5 09/21/24 13:00 10/21/24 12:59 Dextrose/Sodium Chloride 1,000 ml @ 75 mls/hr [id number] IV 09/21/24 13:00 10/21/24 12:59 Gabapentin (NEURontin 100 mg CAP) 100 mg TID PO 09/22/24 14:00 10/22/24 13:59 09/22/24 13:50 100 MG Ketorolac Tromethamine (toRADol) 30 mg Q6H PRN IM MODERATE PAIN (4-6) 09/21/24 13:00 09/22/24 10:45 DC 09/22/24 00:18 30 MG Lactated Ringer's 1,000 ml @ 125 mls/hr Q8H IV 09/21/24 13:00 10/21/24 12:59 4/20/25 02:15 125 MLS/HR Magnesium Sulfate 50 ml @ 0 mls/hr PROTOCOL PRN IV MAGNESIUM PROTOCOL 09/22/24 16:00 10/22/24 15:59 Morphine Sulfate (morPHINE 2MG SYG) 2 mg Q6H PRN IVP SEVERE PAIN (7-10) 09/21/24 13:00 09/28/24 12:59 09/21/24 19:33 2 MG Morphine Sulfate (morPHINE 2MG SYG) 2 mg Q6H6 PRN IVP SEVERE PAIN (7-10) 09/21/24 13:00 09/21/24 12:59 DC Ondansetron HCl (zoFRAN 4MG INJ) 4 mg Q6H PRN IVP NAUSEA/VOMITING 09/21/24 13:00 10/21/24 12:59 09/21/24 19:32 4 MG Potassium Chloride 100 ml @ 100 mls/hr AD PRN IV POTASSIUM PROTOCOL 09/22/24 16:00 10/22/24 15:59 Potassium Chloride (K-Dur/Klor-Con 20meq) 20 meq AD PRN PO POTASSIUM PROTOCOL 09/22/24 16:00 10/22/24 15:59 Potassium Chloride (KCl 10% Elixir 20meq/15ml) 20 meq AD PRN PO POTASSIUM PROTOCOL 09/22/24 16:00 10/22/24 15:59 Tramadol HCl (UltRAM) 50 mg Q6H PRN PO MODERATE PAIN (4-6) 09/22/24 10:30 09/27/24 10:29 ASSESSMENT: Intractable Abdominal pain. Cholelithiasis with Cholecystitis, s/p laparoscopic cholecystectomy. Urinary tract infection. Leukocytosis POA. Hypokalemia. PLAN: Admit patient to the Medical Surgical unit under Dr. Cruz services. General surgeon has been consulted. Start ceftriaxone 2 g IV Q 24 hours. Continue pain management. Advance diet as recommended by General surgery. Give Zofran 4 mg IV every 6 hours as needed for nausea. Start Hypokalemia protocol. This case was reviewed and discussed with my supervising physician and the above assessment and plan was formulated and agreed upon. ATTESTATION BY PHYSICIAN I have seen and examined the patient. I reviewed the documentation, medical decision making, and treatment plan as noted by the mid-level provider above. I agree with the findings and plan of care. MARYELLEN CRUZ MD, [facility] Sep 22, 2024 16:01
[2024-09-22] MEDS: PoTASSium chl 10% ELIXIR 20MEQ 20 MEQ/15 ML UDCUP PO PRN (16:42)
[2024-09-22] MEDS: MAGNESIUM 2GM PREMIX 50ML 50 ML IV PRN (16:42)
[2024-09-22] MEDS: doCUSate SODIUM 100 MG CAP PO ONE (20:57)
[2024-09-22] MEDS: traMADol HCL 50 MG TABLET PO PRN (20:59)
[2024-09-22] MEDS: CEFTRIAXONE 2GM VIAL IVPB SCH (21:05)
[2024-09-23 00:55] VITALS: BP 108/53; PULSE 85; RESP 19; TEMP 98.4
[2024-09-23 04:19] VITALS: BP 127/62; PULSE 75; RESP 18; TEMP 98
[2024-09-23 05:58] LABS: BASOPHILS # (AUTO) 0.02 K/uL (0.00-0.20); BASOPHILS % (AUTO) 0.2 % (0.0-5.0); EOSINOPHILS % (AUTO) 0.8 % (0.0-8.0); HEMATOCRIT 38.9 % (36-48); IMMATURE GRANULOCYTE ABSOLUTE 0.04 K/uL (0-1); LYMPHOCYTES # (AUTO) 2.4 K/uL (1.0-4.8); LYMPHOCYTES % (AUTO) 19.7 % (21.0-51.0); MEAN CORPUSCULAR HEMOGLOBIN 30.2 pg (27.0-33.0); MEAN CORPUSCULAR HGB CONC 32.6 g/dL (32.0-36.0); MEAN CORPUSCULAR VOLUME 92.6 fL (79-99); MONOCYTES # (AUTO) 0.8 K/uL (0.1-1.0); MONOCYTES % (AUTO) 6.4 % (3.0-13.0); NEUTROPHILS # (AUTO) 8.8 K/uL (1.8-7.7); NEUTROPHILS % (AUTO) 72.6 % (40.0-77.0); PLATELET COUNT (AUTO) 198 K/uL (130-400); RED CELL DISTRIBUTION WIDTH 12.8 % (11.0-15.5); WHITE BLOOD COUNT (AUTO) 12.2 K/uL (4.8-10.8)
[2024-09-23 06:13] LABS: CREATININE 0.6 mg/dL (0.5-1.0); MAGNESIUM 2.3 mg/dL (1.80-2.40); POTASSIUM 3.6 mmol/L (3.5-5.1)
[2024-09-23 07:48] VITALS: BP 114/54; PULSE 82; RESP 19; TEMP 98.4
[2024-09-23 08:35] VITALS: O2SAT 99
[2024-09-23 11:17] VITALS: BP 115/59; PULSE 89; RESP 19; TEMP 98.2
--- NOTE | 2024-09-23 15:10 | NUR ---
F/U VISIT SCHEDULING ATTEMPTED. 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 DR CASH'S OFFICE SCHEDULED FOR F/U APPT. LEFT MESSAGE AND CALL BACK NUMBER TO SCHDULE APPOINTMENT. PROVIDE PATIENT WITH D/C INSTRUCTIONS AND ACKNOWLEDGE. IV REMOVED
--- NOTE | 2024-09-23 16:46 | DS ---
Discharge Summary Hospital Course ASSESSMENT: Intractable Abdominal pain, POA. Cholelithiasis with Cholecystitis, s/p laparoscopic cholecystectomy. Urinary tract infection. Leukocytosis. Hypokalemia. PLAN: Discharge patient to home today. New prescription for Ceftin 500 mg p.o. b.i.d. for 5 days. Follow up with PCP in 3-5 days. Follow up with Dr. Michaels in 1-2 weeks. Continue same home medications. This case was reviewed and discussed with my supervising physician and the above assessment and plan was formulated and agreed upon. ATTESTATION BY PHYSICIAN I have seen and examined the patient. I reviewed the documentation, medical decision making, and treatment plan as noted by the mid-level provider above. I agree with the findings and plan of care. MARYELLEN CRUZ MD, [facility] Sep 23, 2024 16:46
== END 2024-09-23 16:00 | disposition home or self-care (01) | DRG 418 ==
LOC: EDH 06:10 → EDHIP 06:11 → 3CH 15:40
PROVIDERS: ADMIT Internal Medicine Infectious Disease; ATTEND Internal Medicine Infectious Disease
PROC: BF101ZZ Fluoroscopy of Bile Ducts using Low Osmolar Contrast (ICD-10-PCS; 2024-09-22)
PROC: 0FT44ZZ Resection of Gallbladder, Percutaneous Endoscopic Approach (ICD-10-PCS; principal; 2024-09-22 08:14)
DX: K80.00 Calculus of gallbladder with acute cholecystitis without obstruction (principal); N39.0 Urinary tract infection, site not specified; K82.8 Other specified diseases of gallbladder; E87.6 Hypokalemia; Z83.3 Family history of diabetes mellitus; Z98.891 History of uterine scar from previous surgery
CPT/HCPCS: 36415; 74300; 76705; 80048; 80076; 81001; 81025; 83735; 85025; 87086; 96374; 96375; 99285; C1758; G0378; J0690; J0696; J1100; J1171; J1885; J2003; J2250; J2270; J2405; J2704; J3010; J3475; J3490; J7030; J7120; Q9967; A4649; A4930; J0665